=== PATIENT | male | born 1955 | race Two or more races ===

== ENCOUNTER 2019-09-02 18:35 | Inpatient (IN) | payer MEDICAID ==
[~2019-09-02] VITALS: Ht 154.9 cm; Wt 70.9 kg
[2019-09-02 20:36] LABS: CHLORIDE 104 mEq/L (98-107)
[2019-09-02 20:43] LABS: PARTIAL THROMBOPLASTIN TIME 29.1 sec (23.4-31.0); PROTHROMBIN TIME 10.1 sec (9.6-11.0)
[2019-09-02 20:55] LABS: HEMATOCRIT. 37.8 % (42.0-52.0); HEMOGLOBIN. 13.2 g/dL (14.0-18.0); MEAN CORPUSCULAR HEMOGLOBIN 32.6 pg (28.0-32.0); MEAN CORPUSCULAR VOLUME 93.6 fL (80.0-94.0); MEAN PLATELET VOLUME 9.1 fl (7.4-10.4); PLATELET 165 x1000/uL (130-400); RED BLOOD CELL COUNT 4.04 mill/uL (4.7-6.1); RED CELL DISTRIBUTION WIDTH 12.7 % (11.6-14.6)
[2019-09-02 21:09] LABS: BG BASE EXCESS -0.8 mmol/L (-2.0-2.0); BG CARBOXYHEMOGLOBIN 0.6 % (0.5-1.5); BG DEOXYHEMOGLOBIN 14.2 % (0.0-5.0); BG FRACTION INSPIRED OXYGEN 21; BG HCO3 ACT 23.4 mmol/L (22.0-26.0); BG METHEMOGLOBIN 0.3 % (0.0-1.5); BG OXYGEN SATURATION 85.7 % (92.0-98.5); BG OXYHEMOGLOBIN 84.9 % (94.0-97.0); BG PCO2 37.4 mmHg (35.0-45.0); BG PH 7.414 (7.350-7.450); BG PO2 50.3 mmHg (75.0-100.0); BG SAMPLE SITE RIGHT RADIAL; BG TOTAL HEMOGLOBIN 15.2 g/dL (12.0-18.0); BG VENT MODE ROOM AIR
[2019-09-02 21:23] LABS: PLATELET ESTIMATE NORMAL
[2019-09-02] MEDS ORDERED: CEFTRIAXONE 1 G PREMIX 50 ML IV ONE (21:45)
[2019-09-02] MEDS ORDERED: AZITHROMYCIN 500 MG in DEXT 5% WATER 250 ML IV ONE (21:45)
[2019-09-02] MEDS ORDERED: GUAIFENESIN/CODEINE 100-10MG/5ML UDC PO PRN (22:45)
[2019-09-02] MEDS ORDERED: DIPHENHYDRAMINE 50MG/ML VIAL IV PRN (22:45)
[2019-09-02] MEDS ORDERED: CLONIDINE 0.1MG TABLET PO PRN (22:45)
[2019-09-02] MEDS ORDERED: ONDANSETRON HCL 4MG/2ML INJ IV PRN (22:45)
[2019-09-02] MEDS ORDERED: ALBUTEROL 6.7GM HFA INHALER ORI PRN (22:45)
[2019-09-02] MEDS ORDERED: ACETAMINOPHEN 325MG TABLET PO PRN ×2 (22:45)
[2019-09-02] MEDS ORDERED: DEXTROSE 50% WATER 50ML SYRINGE IV PRN (23:00)
[2019-09-02] MEDS ORDERED: DEXAMETHASONE 10 MG/ML VIAL IV NR (23:09)
[2019-09-02] MEDS ORDERED: ZOLPIDEM TARTRATE 5MG TABLET PO PRN (23:09)
[2019-09-02] MEDS ORDERED: ENOXAPARIN 120MG/0.8ML SYR SUBCUT SCH (23:30)
[2019-09-03] MEDS: ENOXAPARIN 120MG/0.8ML SYR SUBCUT SCH ×2 (00:24→08:25)
[2019-09-03 01:21] LABS: CLARITY URINE CLEAR (CLEAR); COLOR URINE YELLOW (YELLOW); KETONES URINE NEGATIVE (NEGATIVE); LEUKOCYTE ESTERASE URINE NEGATIVE (NEGATIVE); NITRITE URINE NEGATIVE (NEGATIVE); OCCULT BLOOD URINE 1+ (NEGATIVE); PROTEIN URINE 2+ (NEGATIVE)
[2019-09-03 04:00] VITALS: BP 136/72
[2019-09-03] MEDS ORDERED: LOSA100T32 PO (04:02)
[2019-09-03] MEDS ORDERED: TAMS-11 PO (04:02)
[2019-09-03] MEDS ORDERED: METF-416 PO (04:03)
[2019-09-03] MEDS ORDERED: FINA5TAB11 PO (04:04)
[2019-09-03] MEDS ORDERED: ATOR40TA70 PO (04:05)
[2019-09-03] MEDS ORDERED: PNEUMOCOCCAL 23-VAL P-SAC VAC 0.5 ML IM ONE (04:30)
[2019-09-03] MEDS: INSULIN LISPRO 100 UNITS/ML SUBCUT SCH ×4 (06:29→20:28)
[2019-09-03] MEDS: SODIUM CHLORIDE 0.9% INJ 3ML FLUSH IVF SCH ×3 (06:29→21:29)
[2019-09-03] MEDS: BLOOD SUGAR DIAGNOSTIC STRIP TEST SCH ×4 (06:30→20:28)
[2019-09-03] MEDS: GUAIFENESIN 600MG ER TABLET PO SCH ×2 (08:24→20:27)
[2019-09-03] MEDS: FAMOTIDINE 20MG TABLET PO SCH ×2 (08:24→20:28)
[2019-09-03] MEDS: DEXAMETHASONE 4MG TABLET PO SCH (08:24)
[2019-09-03 08:30] VITALS: BP 122/77
[2019-09-03] MEDS ORDERED: DEXAMETHASONE 4MG TABLET PO SCH (09:00)
[2019-09-03] MEDS ORDERED: INSULIN GLARGINE UD 100 UNITS/ML SYR SUBCUT SCH (10:00)
[2019-09-03 12:00] VITALS: BP 128/80
[2019-09-03] MEDS: INSULIN GLARGINE UD 100 UNITS/ML SYR SUBCUT SCH (13:38)
[2019-09-03 16:30] VITALS: BP 133/76
[2019-09-03 20:00] VITALS: BP 105/45
[2019-09-03] MEDS ORDERED: CEFTRIAXONE 1 G PREMIX 50 ML IV SCH (20:00)
[2019-09-03] MEDS: CEFTRIAXONE 1 G PREMIX 50 ML IV SCH (20:27)
[2019-09-03] MEDS ORDERED: AZITHROMYCIN 500 MG in DEXT 5% WATER 250 ML IV SCH (21:00)
[2019-09-03] MEDS: AZITHROMYCIN 500 MG in DEXT 5% WATER 250 ML IV SCH (21:28)
[2019-09-04] VITALS: BP 119/62
[2019-09-04] MEDS: GUAIFENESIN/CODEINE 200-20MG/10ML UDC PO PRN ×2 (00:08→14:18)
[2019-09-04] MEDS: ALBUTEROL 6.7GM HFA INHALER ORI SCH ×4 (03:40→19:53)
[2019-09-04 04:00] VITALS: BP 124/54
[2019-09-04] MEDS: SODIUM CHLORIDE 0.9% INJ 3ML FLUSH IVF SCH ×3 (05:54→22:00)
[2019-09-04] MEDS: BLOOD SUGAR DIAGNOSTIC STRIP TEST SCH ×4 (05:54→21:48)
[2019-09-04] MEDS: INSULIN LISPRO 100 UNITS/ML SUBCUT SCH ×4 (07:51→21:55)
[2019-09-04 07:55] LABS: CHLORIDE 106 mEq/L (98-107)
[2019-09-04 08:00] VITALS: BP 126/56
[2019-09-04] MEDS: DEXAMETHASONE 4MG TABLET PO SCH (09:25)
[2019-09-04] MEDS: GUAIFENESIN 600MG ER TABLET PO SCH ×2 (09:26→21:55)
[2019-09-04] MEDS: FAMOTIDINE 20MG TABLET PO SCH ×2 (09:26→21:55)
[2019-09-04] MEDS: ENOXAPARIN 80MG/0.8ML SYR SUBCUT SCH ×2 (09:27→21:56)
[2019-09-04] MEDS: INSULIN GLARGINE UD 100 UNITS/ML SYR SUBCUT SCH (09:56)
[2019-09-04 12:00] VITALS: BP 120/52
[2019-09-04 16:00] VITALS: BP 141/67
[2019-09-04] MEDS: CEFTRIAXONE 1 G PREMIX 50 ML IV SCH (19:52)
[2019-09-04 20:00] VITALS: BP 126/59
[2019-09-04] MEDS: AZITHROMYCIN 500 MG in DEXT 5% WATER 250 ML IV SCH (21:53)
[2019-09-04] MEDS ORDERED: INSULIN GLARGINE UD 100 UNITS/ML SYR SUBCUT SCH (22:00)
[2019-09-05 00:04] VITALS: BP 145/69
[2019-09-05] MEDS: ALBUTEROL 6.7GM HFA INHALER ORI SCH ×4 (02:13→20:10)
[2019-09-05 04:00] VITALS: BP 119/57
[2019-09-05] MEDS: SODIUM CHLORIDE 0.9% INJ 3ML FLUSH IVF SCH ×3 (05:51→21:10)
[2019-09-05 06:31] LABS: HEMATOCRIT. 41.4 % (42.0-52.0); MEAN CORPUSCULAR HEMOGLOBIN 31.6 pg (28.0-32.0); MEAN CORPUSCULAR VOLUME 93.4 fL (80.0-94.0); MEAN PLATELET VOLUME 8.9 fl (7.4-10.4); PLATELET 261 x1000/uL (130-400); RED BLOOD CELL COUNT 4.44 mill/uL (4.7-6.1)
[2019-09-05 06:36] LABS: CHLORIDE 106 mEq/L (98-107)
[2019-09-05] MEDS: BLOOD SUGAR DIAGNOSTIC STRIP TEST SCH ×4 (07:03→20:09)
[2019-09-05 08:00] VITALS: BP 107/46
[2019-09-05] MEDS: INSULIN LISPRO 100 UNITS/ML SUBCUT SCH ×4 (08:06→20:09)
[2019-09-05] MEDS: GUAIFENESIN 600MG ER TABLET PO SCH ×2 (08:24→20:09)
[2019-09-05] MEDS: FAMOTIDINE 20MG TABLET PO SCH ×2 (08:24→20:09)
[2019-09-05] MEDS: DEXAMETHASONE 4MG TABLET PO SCH (08:25)
[2019-09-05 09:25] LABS: PLATELET ESTIMATE NORMAL
[2019-09-05] MEDS: ENOXAPARIN 80MG/0.8ML SYR SUBCUT SCH ×2 (10:02→20:10)
[2019-09-05] MEDS: INSULIN GLARGINE UD 100 UNITS/ML SYR SUBCUT SCH (10:03)
[2019-09-05 11:30] VITALS: BP 123/66
[2019-09-05] MEDS ORDERED: REMDESIVIR 200 MG in SODIUM CHLORIDE 0.9% 250 ML IV NR (14:00)
[2019-09-05 16:00] VITALS: BP 115/67
[2019-09-05] MEDS: GUAIFENESIN/CODEINE 200-20MG/10ML UDC PO PRN (17:25)
[2019-09-05 20:00] VITALS: BP 100/53
[2019-09-05] MEDS: CEFTRIAXONE 1 G PREMIX 50 ML IV SCH (20:09)
[2019-09-05] MEDS: AZITHROMYCIN 500 MG in DEXT 5% WATER 250 ML IV SCH (21:04)
[2019-09-06] VITALS: BP 129/67
[2019-09-06] MEDS: GUAIFENESIN/CODEINE 200-20MG/10ML UDC PO PRN (01:37)
[2019-09-06] MEDS: ALBUTEROL 6.7GM HFA INHALER ORI SCH ×4 (01:37→19:49)
[2019-09-06 04:00] VITALS: BP 104/54
[2019-09-06] MEDS: SODIUM CHLORIDE 0.9% INJ 3ML FLUSH IVF SCH ×3 (06:00→21:09)
[2019-09-06 07:08] LABS: CHLORIDE 107 mEq/L (98-107)
[2019-09-06] MEDS: INSULIN LISPRO 100 UNITS/ML SUBCUT SCH ×4 (07:30→21:09)
[2019-09-06] MEDS: BLOOD SUGAR DIAGNOSTIC STRIP TEST SCH ×4 (07:30→21:11)
[2019-09-06 08:00] VITALS: BP 107/61
[2019-09-06] MEDS: DEXAMETHASONE 4MG TABLET PO SCH (09:58)
[2019-09-06] MEDS: GUAIFENESIN 600MG ER TABLET PO SCH ×2 (09:58→21:09)
[2019-09-06] MEDS: FAMOTIDINE 20MG TABLET PO SCH ×2 (09:58→21:09)
[2019-09-06] MEDS: ENOXAPARIN 80MG/0.8ML SYR SUBCUT SCH ×2 (09:59→21:09)
[2019-09-06] MEDS: INSULIN GLARGINE UD 100 UNITS/ML SYR SUBCUT SCH (10:47)
[2019-09-06 12:00] VITALS: BP 140/69
[2019-09-06] MEDS: REMDESIVIR 100 MG in SODIUM CHLORIDE 0.9% 250 ML IV SCH (15:00)
[2019-09-06 15:33] LABS: BG BASE EXCESS -1.5 mmol/L (-2.0-2.0); BG CARBOXYHEMOGLOBIN 0.2 % (0.5-1.5); BG DEOXYHEMOGLOBIN 0.8 % (0.0-5.0); BG FRACTION INSPIRED OXYGEN 99.8; BG METHEMOGLOBIN 0.4 % (0.0-1.5); BG OXYGEN SATURATION 99.2 % (92.0-98.5); BG OXYHEMOGLOBIN 98.6 % (94.0-97.0); BG PCO2 30.1 mmHg (35.0-45.0); BG PH 7.462 (7.350-7.450); BG PO2 188.8 mmHg (75.0-100.0); BG SAMPLE SITE RIGHT RADIAL; BG VENT MODE MASK - NRB
[2019-09-06 16:00] VITALS: BP 120/62
[2019-09-06 20:00] VITALS: BP 134/68
[2019-09-06] MEDS ORDERED: CEFTRIAXONE 1,000 MG in DEXTROSE 5% WATER 50 ML IV SCH (20:00)
[2019-09-06] MEDS: AZITHROMYCIN 500 MG in DEXT 5% WATER 250 ML IV SCH (21:11)
[2019-09-07] VITALS: BP 130/64
[2019-09-07] MEDS: ALBUTEROL 6.7GM HFA INHALER ORI SCH ×4 (02:37→20:20)
[2019-09-07 04:00] VITALS: BP 125/65
[2019-09-07] MEDS: BLOOD SUGAR DIAGNOSTIC STRIP TEST SCH ×4 (05:52→20:10)
[2019-09-07] MEDS: GUAIFENESIN/CODEINE 200-20MG/10ML UDC PO PRN (05:58)
[2019-09-07] MEDS: SODIUM CHLORIDE 0.9% INJ 3ML FLUSH IVF SCH ×3 (05:58→22:08)
[2019-09-07 07:35] LABS: CHLORIDE 107 mEq/L (98-107)
[2019-09-07 08:00] VITALS: BP 135/75
[2019-09-07] MEDS: INSULIN LISPRO 100 UNITS/ML SUBCUT SCH ×4 (08:10→20:09)
[2019-09-07] MEDS: FAMOTIDINE 20MG TABLET PO SCH ×2 (09:02→20:09)
[2019-09-07] MEDS: ENOXAPARIN 80MG/0.8ML SYR SUBCUT SCH ×2 (09:03→20:10)
[2019-09-07] MEDS: GUAIFENESIN 600MG ER TABLET PO SCH ×2 (09:03→20:09)
[2019-09-07] MEDS: DEXAMETHASONE 4MG TABLET PO SCH (09:03)
[2019-09-07 12:00] VITALS: BP 116/73
[2019-09-07] MEDS: INSULIN GLARGINE UD 100 UNITS/ML SYR SUBCUT SCH (12:11)
[2019-09-07] MEDS: REMDESIVIR 100 MG in SODIUM CHLORIDE 0.9% 250 ML IV SCH (14:44)
[2019-09-07 16:00] VITALS: BP 125/62
[2019-09-07 20:00] VITALS: BP 115/57
[2019-09-08] VITALS: BP 120/72
[2019-09-08] MEDS: INSULIN GLARGINE UD 100 UNITS/ML SYR SUBCUT SCH ×3 (02:03→21:05)
[2019-09-08] MEDS: ALBUTEROL 6.7GM HFA INHALER ORI SCH ×4 (02:03→21:00)
[2019-09-08 04:00] VITALS: BP 116/67
[2019-09-08] MEDS: SODIUM CHLORIDE 0.9% INJ 3ML FLUSH IVF SCH ×3 (05:22→21:02)
[2019-09-08] MEDS: BLOOD SUGAR DIAGNOSTIC STRIP TEST SCH ×4 (06:50→21:02)
[2019-09-08 07:28] LABS: CHLORIDE 108 mEq/L (98-107)
[2019-09-08 08:00] VITALS: BP 121/69
[2019-09-08] MEDS: INSULIN LISPRO 100 UNITS/ML SUBCUT SCH ×4 (08:10→21:01)
[2019-09-08] MEDS: DEXAMETHASONE 4MG TABLET PO SCH (08:39)
[2019-09-08] MEDS: FAMOTIDINE 20MG TABLET PO SCH ×2 (08:39→21:02)
[2019-09-08] MEDS: GUAIFENESIN 600MG ER TABLET PO SCH ×2 (08:39→21:02)
[2019-09-08] MEDS: ENOXAPARIN 80MG/0.8ML SYR SUBCUT SCH ×2 (09:00→21:02)
[2019-09-08] MEDS: REMDESIVIR 100 MG in SODIUM CHLORIDE 0.9% 250 ML IV SCH (13:44)
[2019-09-08 16:00] VITALS: BP 118/67
[2019-09-08 20:00] VITALS: BP 116/62
[2019-09-09] VITALS: BP 118/68
[2019-09-09] MEDS: ALBUTEROL 6.7GM HFA INHALER ORI SCH ×4 (02:01→21:10)
[2019-09-09 04:00] VITALS: BP 124/66
[2019-09-09 06:28] LABS: CHLORIDE 108 mEq/L (98-107)
[2019-09-09] MEDS: SODIUM CHLORIDE 0.9% INJ 3ML FLUSH IVF SCH ×3 (07:26→21:11)
[2019-09-09] MEDS: BLOOD SUGAR DIAGNOSTIC STRIP TEST SCH ×4 (07:27→21:12)
[2019-09-09 08:00] VITALS: BP 109/62
[2019-09-09] MEDS: INSULIN LISPRO 100 UNITS/ML SUBCUT SCH ×4 (08:10→21:13)
[2019-09-09] MEDS: ENOXAPARIN 80MG/0.8ML SYR SUBCUT SCH ×2 (08:53→21:10)
[2019-09-09] MEDS: FAMOTIDINE 20MG TABLET PO SCH ×2 (08:54→21:10)
[2019-09-09] MEDS: DEXAMETHASONE 4MG TABLET PO SCH (08:54)
[2019-09-09] MEDS: GUAIFENESIN 600MG ER TABLET PO SCH ×2 (08:54→21:10)
[2019-09-09] MEDS: INSULIN GLARGINE UD 100 UNITS/ML SYR SUBCUT SCH ×2 (10:43→22:12)
[2019-09-09 12:00] VITALS: BP 119/69
[2019-09-09] MEDS: REMDESIVIR 100 MG in SODIUM CHLORIDE 0.9% 250 ML IV SCH (13:58)
[2019-09-09 16:00] VITALS: BP 120/63
[2019-09-09 20:00] VITALS: BP 104/61
[2019-09-10] VITALS: BP 127/68
[2019-09-10] MEDS: ALBUTEROL 6.7GM HFA INHALER ORI SCH ×4 (02:25→20:53)
[2019-09-10 04:00] VITALS: BP 112/65
[2019-09-10] MEDS: SODIUM CHLORIDE 0.9% INJ 3ML FLUSH IVF SCH ×3 (05:45→20:54)
[2019-09-10] MEDS: BLOOD SUGAR DIAGNOSTIC STRIP TEST SCH ×4 (07:03→20:54)
[2019-09-10 08:00] VITALS: BP 114/70
[2019-09-10 08:01] LABS: CHLORIDE 104 mEq/L (98-107)
[2019-09-10] MEDS: INSULIN LISPRO 100 UNITS/ML SUBCUT SCH ×4 (08:10→21:36)
[2019-09-10] MEDS: DEXAMETHASONE 4MG TABLET PO SCH (09:11)
[2019-09-10] MEDS: FAMOTIDINE 20MG TABLET PO SCH ×2 (09:11→20:54)
[2019-09-10] MEDS: GUAIFENESIN 600MG ER TABLET PO SCH ×2 (09:11→20:54)
[2019-09-10] MEDS: ENOXAPARIN 80MG/0.8ML SYR SUBCUT SCH ×2 (09:11→20:54)
[2019-09-10] MEDS: INSULIN GLARGINE UD 100 UNITS/ML SYR SUBCUT SCH ×2 (09:54→21:36)
[2019-09-10 12:00] VITALS: BP 120/73
[2019-09-10 16:00] VITALS: BP 116/70
[2019-09-10 20:00] VITALS: BP 123/63
[2019-09-11] VITALS: BP 107/67
[2019-09-11] MEDS: ALBUTEROL 6.7GM HFA INHALER ORI SCH ×4 (02:15→22:53)
[2019-09-11 04:00] VITALS: BP 133/67
[2019-09-11] MEDS: BLOOD SUGAR DIAGNOSTIC STRIP TEST SCH ×4 (06:12→21:00)
[2019-09-11] MEDS: SODIUM CHLORIDE 0.9% INJ 3ML FLUSH IVF SCH ×3 (06:12→22:58)
[2019-09-11] MEDS: INSULIN LISPRO 100 UNITS/ML SUBCUT SCH ×5 (07:39→22:57)
[2019-09-11 08:00] VITALS: BP 114/65
[2019-09-11] MEDS: ENOXAPARIN 80MG/0.8ML SYR SUBCUT SCH ×2 (08:39→22:54)
[2019-09-11] MEDS: DEXAMETHASONE 4MG TABLET PO SCH (08:39)
[2019-09-11] MEDS: FAMOTIDINE 20MG TABLET PO SCH ×2 (08:39→22:54)
[2019-09-11] MEDS: GUAIFENESIN 600MG ER TABLET PO SCH ×2 (08:39→22:54)
[2019-09-11] MEDS: INSULIN GLARGINE UD 100 UNITS/ML SYR SUBCUT SCH ×2 (10:04→22:56)
[2019-09-11 12:00] VITALS: BP 118/65
[2019-09-11 16:00] VITALS: BP 114/71
[2019-09-11 20:00] VITALS: BP 108/66
[2019-09-12] VITALS: BP 112/69
[2019-09-12 04:00] VITALS: BP 104/60
[2019-09-12] MEDS: ALBUTEROL 6.7GM HFA INHALER ORI SCH ×2 (05:52→08:54)
[2019-09-12] MEDS: SODIUM CHLORIDE 0.9% INJ 3ML FLUSH IVF SCH (05:52)
[2019-09-12] MEDS: INSULIN LISPRO 100 UNITS/ML SUBCUT SCH ×2 (07:38→13:21)
[2019-09-12] MEDS: BLOOD SUGAR DIAGNOSTIC STRIP TEST SCH ×2 (07:38→13:14)
[2019-09-12 08:00] VITALS: BP 103/60
[2019-09-12] MEDS: GUAIFENESIN 600MG ER TABLET PO SCH (08:52)
[2019-09-12] MEDS: DEXAMETHASONE 4MG TABLET PO SCH (08:52)
[2019-09-12] MEDS: FAMOTIDINE 20MG TABLET PO SCH (08:52)
[2019-09-12] MEDS: ENOXAPARIN 80MG/0.8ML SYR SUBCUT SCH (08:52)
[2019-09-12 12:00] VITALS: BP 108/69
[2019-09-12] MEDS: INSULIN GLARGINE UD 100 UNITS/ML SYR SUBCUT SCH (12:23)
[2019-09-12 15:21] VITALS: BP 109/61
== END 2019-09-12 16:00 | disposition home or self-care (01) | DRG 720 ==
LOC: ER 18:35 → 7WST 22:47 → EDBEDREQTM 09-03 00:04 → EDBEDREQ 09-03 00:04 → ENRESERV 09-03 02:47
PROVIDERS: ADMIT Internal Medicine; ATTEND Internal Medicine
DX: A41.89 Other specified sepsis (principal); U07.1 COVID-19; J98.11 Atelectasis; J96.01 Acute respiratory failure with hypoxia; J12.89 Other viral pneumonia; E11.9 Type 2 diabetes mellitus without complications; R74.0 Nonspecific elevation of levels of transaminase and lactic acid dehydrogenase [LDH]; E66.9 Obesity, unspecified; I10 Essential (primary) hypertension; K85.90 Acute pancreatitis without necrosis or infection, unspecified; Z68.29 Body mass index [BMI] 29.0-29.9, adult; Z79.4 Long term (current) use of insulin; Z82.49 Family history of ischemic heart disease and other diseases of the circulatory system; Z83.3 Family history of diabetes mellitus; Z86.19 Personal history of other infectious and parasitic diseases
CPT/HCPCS: 36415; 36600; 71045; 80048; 80053; 81003; 82375; 82728; 82805; 82962; 83036; 83880; 84145; 84484; 85025; 86140; 86850; 86900; 90732; 93005; 99291; J0456; J0696; J1100; J1650; J1815; J7050; J7060; J8540; Q9957; U0003-CS